=== PATIENT | female | born 1970 | race Two or more races ===

== ENCOUNTER 2018-11-22 09:21 | Emergency (ER) | payer SELFPAY ==
[~2018-11-22] VITALS: Ht 165.1 cm; Wt 86.2 kg
[2018-11-22] MEDS ORDERED: KETOROLAC 30 MG/ML VIAL. IV ONE (10:30)
--- NOTE | 2018-11-22 10:37 | RAD ---
CHEST PA LATERAL History: Chest pain and shortness of breath for 2 days Comparison: None. Findings: 2 views of the chest are submitted. There is no lobar consolidation, pleural fluid, pneumothorax. Heart size is within normal limits. There is mild interstitial opacity of the mid to inferior right hemithorax, to lesser degree on the left. Impression: 1. There is no lobar infiltrate or pleural fluid. There is mild interstitial opacity greater on the right of uncertain chronicity, could be due to mild interstitial infiltrate or edema. Electronically signed by: Antonio Sahu MD (11/22/2018 10:33 AM) [id number]
[2018-11-22 10:45] LABS: BASO % 1 % (0-3); EOS # 0.1 x10^3/uL (0.0-0.7); EOS % 1 % (0-3); HEMATOCRIT 38.8 % (36.0-47.0); LYMPH # 1.4 x10^3/uL (1.0-4.8); LYMPH % 16 % (24-48); MEAN CORPUSCULAR HEMOGLOBIN 28 pg (25-35); MEAN CORPUSCULAR HGB CONC 34 g/dL (31-37); MEAN CORPUSCULAR VOLUME 84 fL (79-100); MONO # 0.7 x10^3/uL (0.0-1.1); MONO % 8 % (0-9); NEUT # 6.3 x10^3uL (1.8-7.7); NEUT % 74 % (31-73); PLATELET COUNT 242 x10^3/uL (140-400); WHITE BLOOD COUNT 8.5 x10^3/uL (4.0-11.0)
--- NOTE | 2018-11-22 10:50 | PHYS DOC ---
Past Medical History Past Medical History: No Pertinent History Past Surgical History: No Surgical History Alcohol Use: None Drug Use: None Adult General Chief Complaint Chief Complaint: MULTIPLE COMPLAINTS, chest pain [facility] HPI Patient is a 48 year old [place]ian speaking female who presents with complaining of multiple medical problems including chest pain, nausea and vomiting, joint pain and bruising. Patient talking with help of her sister is translating. Patient complaining of intermittent episodes of bilateral chest and substernal chest pain for the last 2 days that getting more constant since last night as an aching pain without radiation. Patient rated her pain 8/10. Patient also complaining of intermittent episodes of nausea and vomiting for the last 3 days that stopped yesterday and had total of 5 episodes of vomiting without diarrhea and abdominal pain. Patient also complaining of easy bruising frequently for the last several weeks and also chronic small and large joint pain for years. Patient obtaining of subjective fever and chills. Patient was seen by her primary care physician 3 months ago and treated with some medication for a short time. Patient denies hypertension, dyslipidemia, diabetes mellitus, CAD, dyslipidemia, smoking, family history of coronary artery disease. Review of Systems Review of Systems Constitutional: Denies fever or chills [] Eyes: Denies change in visual acuity, redness, or eye pain [] HENT: Denies nasal congestion or sore throat [] Respiratory: Denies cough or shortness of breath [] Cardiovascular: No additional information not addressed in HPI [] GI: Denies abdominal pain, reports constipation, nausea, vomiting. : Denies dysuria or hematuria [] Musculoskeletal: Denies back pain, reports joint pain [] Integument: Denies rash, reports skin lesions [] Neurologic: Denies headache, focal weakness or sensory changes [] Endocrine: Denies polyuria or polydipsia [] All other systems were reviewed and found to be within normal limits, except as documented in this note. Current Medications Current Medications Current Medications Medications (Trade) Dose Ordered Sig/[facility] Start Time Stop Time Status Last Admin Dose Admin Ketorolac Tromethamine (Toradol 30mg Vial) 30 mg 1X ONCE 11/22/18 10:30 11/22/18 10:31 DC 11/22/18 10:52 30 MG Allergies Allergies Allergies Coded Allergies Type Severity Reaction Last Updated Verified No Known Drug Allergies 11/22/18 No Physical Exam Physical Exam Constitutional: Well developed, well nourished, mild distress, non-toxic appearance. [] HENT: Normocephalic, atraumatic, bilateral external ears normal, oropharynx moist, no oral exudates, nose normal. [] Eyes: PERRLA, EOMI, conjunctiva normal, no discharge. [] Neck: Normal range of motion, no tenderness, supple, no stridor. [] Cardiovascular:Heart rate regular rhythm, no murmur [] Lungs & Thorax: Bilateral breath sounds clear to auscultation [] Abdomen: Bowel sounds normal, soft, no tenderness, no masses, no pulsatile masses. [] Skin: Warm, dry, no erythema, few area of old ecchymosis in extremities. [] Back: No tenderness, no CVA tenderness. [] Extremities: No tenderness, no cyanosis, no clubbing, ROM intact, no edema. [] Neurologic: Alert and oriented X 3, normal motor function, normal sensory function, no focal deficits noted. [] Psychologic: Affect anxious, mood normal. [] Current Patient Data Vital Signs Vital Signs Date Time Temp Pulse Resp B/P (MAP) Pulse Ox O2 Delivery O2 Flow Rate FiO2 11/22/18 11:53 82 17 111/67 (82) 97 Room Air 11/22/18 09:28 98.9 98.9 Lab Values Laboratory Tests Test 11/22/18 10:36 11/22/18 10:43 White Blood Count 8.5 x10^3/uL (4.0-11.0) Red Blood Count 4.60 x10^6/uL (3.50-5.40) Hemoglobin 13.0 g/dL (12.0-15.5) Hematocrit 38.8 % (36.0-47.0) Mean Corpuscular Volume 84 fL (79-100) Mean Corpuscular Hemoglobin 28 pg (25-35) Mean Corpuscular Hemoglobin Concent 34 g/dL (31-37) Red Cell Distribution Width 15.0 % (11.5-14.5) H Platelet Count 242 x10^3/uL (140-400) Neutrophils (%) (Auto) 74 % (31-73) H Lymphocytes (%) (Auto) 16 % (24-48) L Monocytes (%) (Auto) 8 % (0-9) Eosinophils (%) (Auto) 1 % (0-3) Basophils (%) (Auto) 1 % (0-3) Neutrophils # (Auto) 6.3 x10^3uL (1.8-7.7) Lymphocytes # (Auto) 1.4 x10^3/uL (1.0-4.8) Monocytes # (Auto) 0.7 x10^3/uL (0.0-1.1) Eosinophils # (Auto) 0.1 x10^3/uL (0.0-0.7) Basophils # (Auto) 0.0 x10^3/uL (0.0-0.2) Prothrombin Time 13.9 SEC (11.7-14.0) Prothrombin Time INR 1.1 (0.8-1.1) Sodium Level 137 mmol/L (136-145) Potassium Level 3.9 mmol/L (3.5-5.1) Chloride Level 101 mmol/L (98-107) Carbon Dioxide Level 24 mmol/L (21-32) Anion Gap 12 (6-14) Blood Urea Nitrogen 5 mg/dL (7-20) L Creatinine 0.7 mg/dL (0.6-1.0) Estimated GFR (Cockcroft-Gault) 90.1 BUN/Creatinine Ratio 7 (6-20) Glucose Level 91 mg/dL (70-99) Calcium Level 8.8 mg/dL (8.5-10.1) Magnesium Level 2.1 mg/dL (1.8-2.4) Total Bilirubin 0.3 mg/dL (0.2-1.0) Aspartate Amino Transferase (AST) 39 U/L (15-37) H Alanine Aminotransferase (ALT) 39 U/L (14-59) Alkaline Phosphatase 118 U/L (46-116) H Creatine Kinase 51 U/L (26-192) Troponin I Quantitative < 0.017 ng/mL (0.000-0.055) Total Protein 7.8 g/dL (6.4-8.2) Albumin 3.4 g/dL (3.4-5.0) Albumin/Globulin Ratio 0.8 (1.0-1.7) L Lipase 72 U/L (73-393) L POC Urine HCG, Qualitative Hcg negative (Negative) Laboratory Tests 11/22/18 10:36 Laboratory Tests 11/22/18 10:36 EKG EKG EKG interpreted by me. EKG at 0 944 showed normal sinus rhythm at rate of 86, normal FL and QT intervals, no acute ST and T-wave abnormalities. Radiology/Procedures Radiology/Procedures [facility] [address] [place] [address] IMAGING REPORT Signed PATIENT: DAMIAN HOWE ACCOUNT: [id number] : 1970 LOCATION: ER AGE: 48 SEX: F EXAM STATUS: REG ER ORD. PHYSICIAN: MANNY CHAVEZ MD REASON: chest pain and sob PROCEDURE: CHEST PA & LATERAL CHEST PA LATERAL History: Chest pain and shortness of breath for 2 days Comparison: None. Findings: 2 views of the chest are submitted. There is no lobar consolidation, pleural fluid, pneumothorax. Heart size is within normal limits. There is mild interstitial opacity of the mid to inferior right hemithorax, to lesser degree on the left. Impression: 1. There is no lobar infiltrate or pleural fluid. There is mild interstitial opacity greater on the right of uncertain chronicity, could be due to mild interstitial infiltrate or edema. Electronically signed by: Ronald King MD (11/22/2018 10:33 AM) [facility] DICTATED and SIGNED BY: RONALD KING MD DATE: 11/22/18 1033 Course & Med Decision Making Course & Med Decision Making Pertinent Labs and Imaging studies reviewed. (See chart for details) Evaluation of patient in ER showed 48-year-old female patient with complaining of multiple acute and chronic problem. Patient had unremarkable physical exam except for anxiety. Labs and EKG and chest x-ray was unremarkable. Patient treated with Toradol and felt better. Patient informed to follow up with her primary care physician regarding arthritis. Dragon Disclaimer Dragon Disclaimer This electronic medical record was generated, in whole or in part, using a voice recognition dictation system. Departure Departure Impression: Primary Impression: Non-cardiac chest pain Additional Impressions: Arthralgia Ecchymoses, spontaneous Nausea and vomiting Anxiety about health Disposition: HOME, SELF-CARE (at 1142) Condition: IMPROVED Referrals: UNKNOWN PCP NAME (PCP) Patient Instructions: Anxiety and Panic Attacks, Arthralgia, Chest Wall Pain, Nausea and Vomiting Additional Instructions: Drink plenty of liquids Follow-up with your primary care physician in 3-5 days Return to ER if not getting better Scripts Tramadol Hcl (ULTRAM) 50 Mg Tablet 50 MG PO Q6HRS PRN for PAIN, #20 TAB 0 Refills Prov: MANNY CHAVEZ MD 11/22/18 Problem Qualifiers MANNY CHAVEZ MD Nov 22, 2018 10:50
[2018-11-22 10:53] LABS: PROTHROMBIN TIME PATIENT 13.9 SEC (11.7-14.0)
[2018-11-22 10:55] LABS: CALCIUM 8.8 mg/dL (8.5-10.1); CREATININE 0.7 mg/dL (0.6-1.0); GFR 90.1; POTASSIUM 3.9 mmol/L (3.5-5.1)
[2018-11-22 11:09] LABS: ALBUMIN 3.4 g/dL (3.4-5.0); ALBUMIN/GLOBULIN RATIO 0.8 (1.0-1.7); MAGNESIUM 2.1 mg/dL (1.8-2.4); TOTAL BILIRUBIN 0.3 mg/dL (0.2-1.0); TOTAL PROTEIN 7.8 g/dL (6.4-8.2)
[2018-11-22] MEDS ORDERED: TRAM-48 PO (11:45)
[2018-11-22 11:53] VITALS: BP 111/67
--- NOTE | 2018-11-22 12:00 | EKG ---
[facility] [address] [place] [address] Test Date: 2018-11-22 Test Time: 09:44:59 Pat Name: DAMIAN HOWE Department: Room: Gender: F Organ Builder: : 1970 Requested By: MANNY CHAVEZ Order Number: [id number] Reading MD: Leonel Veliz MD Measurements Intervals [place] Rate: 85 P: 36 CT: 160 QRS: 20 QRSD: 84 T: 13 QT: 344 QTc: 414 Interpretive Statements SINUS RHYTHM Electronically Signed On 11-22-2018 14:30:32 CDT by Leonel Veliz MD
== END 2018-11-22 12:00 | disposition home or self-care (01) ==
LOC: ER 09:21
DX: R07.89 Other chest pain (principal); R11.2 Nausea with vomiting, unspecified; F41.9 Anxiety disorder, unspecified; M19.90 Unspecified osteoarthritis, unspecified site; R59.0 Localized enlarged lymph nodes; R58 Hemorrhage, not elsewhere classified; L98.8 Other specified disorders of the skin and subcutaneous tissue
CPT/HCPCS: 36415; 71046; 80053; 81025; 82550; 83690; 83735; 84484; 85025; 85610; 93005; 96374; 99284; J1885